=== PATIENT | male | born 1975 | race Caucasian/White ===

== ENCOUNTER 2021-04-09 12:51 | Outpatient (REF) | payer OTHER, SELFPAY ==
--- NOTE | ~2021-04-09 | XR_ITS ---
EXAMINATION: XR HIP, LEFT CLINICAL INFORMATION: Left knee pain. COMPARISON: None TECHNIQUE: Two views of the left hip. FINDINGS: Minimal left hip degenerative joint changes are seen. There is no acute fracture or dislocation. The soft tissues are unremarkable. XR/XR hip LT min 2V IMPRESSION: Minimal left hip degenerative joint changes. No acute abnormality.
== END 2021-04-09 12:52 | disposition home or self-care (01) ==
LOC: HO.XRAY 12:51
PROVIDERS: PCP Student in an Organized Health Care Education/Training Program; Visit Provider Internal Medicine Geriatric Medicine
DX: M25.552 Pain in left hip (principal)
CPT/HCPCS: 73502

== ENCOUNTER 2023-06-07 09:23 | Outpatient (REF) | payer OTHER, SELFPAY ==
[2023-06-07 11:29] LABS: MANUAL DIFF FLAG NO
[2023-06-07 11:49] LABS: Basophils Percent Auto 0.6 % (0-2); Eosinophils Absolute Auto 0.1 X10*3/uL (0.0-0.4); Eosinophils Percent Auto 1.2 % (0-4); Hematocrit 42.5 % (42.0-52.0); Hemoglobin 14.2 g/dl (14.0-18.0); Imm Gran Abs Auto 0.01 X10*3/uL (0.00-0.03); Imm Gran Pct Auto 0.2 % (0.0-0.4); Lymphocytes Absolute Auto 1.6 X10*3/uL (1.2-4.9); Lymphocytes Percent Auto 33.1 % (20-40); Mean Corpuscular HGB Conc 33.4 g/dl (31.0-36.0); Mean Corpuscular Hemoglobin 31.7 pg (27.0-33.0); Mean Corpuscular Volume 94.9 fL (80.0-98.0); Mean Platelet Volume 10.6 fL (9.4-12.4); Monocytes Absolute Auto 0.4 X10*3/uL (0.1-1.2); Neutrophils Absolute Auto 2.7 x10*3/uL (2.0-8.3); Neutrophils Percent Auto 55.9 % (45-73); Platelet Count 235 X10*3/uL (160-400); Red Blood Count 4.48 X10*6/uL (4.60-5.80); Red Cell Distribution Width 13.2 % (11.0-16.0); White Blood Count 4.9 X10*3/uL (4.8-10.8)
[2023-06-07 12:20] LABS: Alanine Aminotransferase 23 U/L (0-40); Albumin Level 4.3 g/dL (3.5-5.0); Alkaline Phosphatase 63 U/L (39-117); Anion Gap 12 (12-20); Aspartate Amino Transferase 21 U/L (5-37); Bilirubin Direct 0.4 mg/dL (0.0-0.5); Blood Urea Nitrogen 15 mg/dL (9-16); Calcium 10.2 mg/dL (8.4-10.2); Carbon Dioxide 25 mmol/L (22-29); Chloride 107 mmol/L (96-108); Cholesterol 112 mg/dL; Estimated Glomerular Filt Rate > 60; Glucose Random 82 mg/dL (60-115); HDL Cholesterol 40 mg/dL; LDL Cholesterol Calculated 62 mg/dl; Potassium 4.2 mmol/L (3.3-5.1); Sodium 140 mmol/L (135-145); Thyroid Stimulating Hormone 0.67 uIU/mL (0.32-4.0); Total Protein 7.4 g/dL (6.5-8.0); Triglycerides 54 mg/dL
[2023-06-12 15:43] LABS: Testosterone, Free 72.5 pg/mL (35.0-155.0); Testosterone, Total 424 ng/dL (250-1100)
== END 2023-06-07 09:24 | disposition home or self-care (01) ==
LOC: HO.HHCL 09:23
PROVIDERS: Visit Provider Student in an Organized Health Care Education/Training Program
DX: I10 Essential (primary) hypertension (principal); R53.83 Other fatigue
CPT/HCPCS: 36415; 80048; 80061; 80076; 84402; 84403; 84443; 85025

== ENCOUNTER 2024-02-27 14:50 | Outpatient (REF) | payer OTHER, SELFPAY ==
[2024-02-27 17:56] LABS: MANUAL DIFF FLAG NO
[2024-02-27 18:00] LABS: Basophils Absolute Auto 0.1 X10*3/uL (0.0-0.2); Basophils Percent Auto 0.6 % (0-2); Eosinophils Absolute Auto 0.1 X10*3/uL (0.0-0.4); Eosinophils Percent Auto 0.9 % (0-4); Hematocrit 42.5 % (42.0-52.0); Hemoglobin 14.6 g/dl (14.0-18.0); Imm Gran Abs Auto 0.01 X10*3/uL (0.00-0.03); Imm Gran Pct Auto 0.1 % (0.0-0.4); Lymphocytes Absolute Auto 2.5 X10*3/uL (1.2-4.9); Lymphocytes Percent Auto 31.7 % (20-40); Mean Corpuscular HGB Conc 34.4 g/dl (31.0-36.0); Mean Corpuscular Hemoglobin 32.2 pg (27.0-33.0); Mean Corpuscular Volume 93.6 fL (80.0-98.0); Mean Platelet Volume 9.4 fL (9.4-12.4); Monocytes Absolute Auto 0.6 X10*3/uL (0.1-1.2); Monocytes Percent Auto 8.3 % (2-11); Neutrophils Absolute Auto 4.5 x10*3/uL (2.0-8.3); Neutrophils Percent Auto 58.4 % (45-73); Platelet Count 283 X10*3/uL (160-400); Red Blood Count 4.54 X10*6/uL (4.60-5.80); Red Cell Distribution Width 12.2 % (11.0-16.0); White Blood Count 7.8 X10*3/uL (4.8-10.8)
[2024-02-27 18:11] LABS: Alanine Aminotransferase 12 U/L (0-40); Alkaline Phosphatase 76 U/L (39-117); Anion Gap 14 (12-20); Aspartate Amino Transferase 13 U/L (5-37); Bilirubin Total 0.5 mg/dL (0.0-1.0); Blood Urea Nitrogen 26 mg/dL (9-16); Calcium 9.2 mg/dL (8.4-10.2); Carbon Dioxide 24 mmol/L (22-29); Chloride 104 mmol/L (96-108); Cholesterol 161 mg/dL (<200); Estimated Glomerular Filt Rate > 60; Glucose Random 78 mg/dL (60-115); HDL Cholesterol 46 mg/dL (>40); LDL Cholesterol Calculated 92 mg/dL (<100); Potassium 3.7 mmol/L (3.3-5.1); Sodium 138 mmol/L (135-145); Total Protein 7.7 g/dL (6.5-8.0); Triglycerides 118 mg/dL (<150)
[2024-02-27 18:54] LABS: Reflex LDLD? No
[2024-02-29 10:38] LABS: Absolute CD3 Count 1929 cells/uL (840-3060); Absolute CD4 Count 1130 cells/uL (490-1740); Absolute CD8 Count 893 cells/uL (180-1170); Absolute Lymphocytes 2438 cells/uL (850-3900); CD4 CD8 Ratio 1.27 (0.86-5.00); Percent CD3 Cells 79 % (57-85); Percent CD4 Cells 46 % (30-61); Percent CD8 Cells 37 % (12-42); RPR Rapid Plasma Reagin NON-REACTIVE (NON-REACTIVE)
[2024-03-01 23:38] LABS: TS Negative Control Passed; TS Panel A 0; TS Panel B 1; TS Positive Control Passed; TSpotTB Negative (Negative)
== END 2024-02-27 14:51 | disposition home or self-care (01) ==
LOC: HO.CHCLDS 14:50
PROVIDERS: Visit Provider Internal Medicine
DX: Z11.1 Encounter for screening for respiratory tuberculosis (principal); Z11.3 Encounter for screening for infections with a predominantly sexual mode of transmission; Z21 Asymptomatic human immunodeficiency virus [HIV] infection status
CPT/HCPCS: 36415; 80053; 80061; 85025; 86359; 86360; 86481; 86592; 87536

== ENCOUNTER 2024-03-05 08:40 | Outpatient (AMB) | payer OTHER, SELFPAY ==
--- NOTE | 2024-03-05 08:42 | MHC.OFFVIS ---
Vital Signs 03/05/24 08:49 Height 6 ft Weight 199 lb BMI 27.0 BP 126/83 Blood Pressure Location Rt brachial Position Sitting Pulse 75 Intake Visit Reasons: Lipoma other specified sites Intake Note: Patient referred by Dr. Mcgovern for lipoma on Lt lower back. Present for 2yrs. Patient c/o: enlarging, tenderness. Denies oozing. Hydrographic Engineer Required: No Accompanied by: Self / Same As Patient Allergies No Known Allergies Allergy (Verified 03/05/24 08:46) HPI Comments Details: Patient presents for evaluation of bilateral lower back lipomas. He has had left hip/sciatic type symptoms and is wondering if these lipomas may be responsible for his symptoms. He had back film was by his medical doctor earlier in the week but has not had them reviewed yet. Chart was reviewed and patient evaluated [facility] Surgical History (Updated 03/05/24 @ 09:42 by Randy Barnes MD) History of lung biopsy Social History (Updated 03/05/24 @ 08:49 by JAYNA Ralph) Alcohol intake: current Alcohol intake frequency: a few times a month Alcohol type: beer Patient Tobacco Use Status: Never used Tobacco Physical Exam Vital Signs: Last Vital Signs Pulse 75 03/05/24 08:49 BP 126/83 03/05/24 08:49 BMI result Body Mass Index 27.0 Chest Other: Chest breath sounds bilaterally, HS 1 in 2 GI Other: Abdomen is soft, benign Back/Spine/Pelvis Other: Patient has bilateral lower back lipomas deeply situated in the upper buttock area symmetrically. Each measures approximately 4 x 3 cm. Assessment & Plan Assessment & Plan (1) Lipoma of back: Code(s): D17.1 - Benign lipomatous neoplasm of skin and subcutaneous tissue of trunk Category: Surgical Plan Discussed with the patient that it is highly unlikely that these lipomas are causing his hip/back symptoms. Is more likely that this is either related to his lumbar spine/radiculopathy type etiology. Nonetheless, he wishes to have these 2 lipomas excised. Because of the depth and size, I think he would be best served having these removed in an ambulatory surgical setting. Risks, benefits, alternatives of bilateral lower back lipoma excision were reviewed with the patient and included but not limited to bleeding, infection, recurrence, numbness, pain, scarring the patient was to proceed. All questions answered. Arrangements made for this. Coding Level of Care Code New Pt Level 5 (64281) Diagnoses Lipoma of back D17.1
[2024-03-05 08:49] VITALS: BP 126/83; PULSE 75; BMI 27.0
== END 2024-03-05 09:39 | disposition home or self-care (01) ==
PROVIDERS: PCP Student in an Organized Health Care Education/Training Program; Visit Provider Surgery
DX: D17.1 Benign lipomatous neoplasm of skin and subcutaneous tissue of trunk (principal)
CPT/HCPCS: 99204

== ENCOUNTER → 2024-03-05 08:40 | Outpatient (BNVA) | payer OTHER, SELFPAY | PROVIDERS: PCP Student in an Organized Health Care Education/Training Program; Visit Provider Surgery | DX: D17.1 Benign lipomatous neoplasm of skin and subcutaneous tissue of trunk (principal) | CPT/HCPCS: 99202 ==

== ENCOUNTER 2024-03-22 10:57 | Outpatient (REF) | payer OTHER, SELFPAY ==
[2024-03-23 15:14] LABS: HIV RNA PCR Qn Copies 81 copies/mL (NOT DETECTED); HIV RNA PCR Qn Log Copies 1.91 (NOT DETECTED)
== END 2024-03-22 10:58 | disposition home or self-care (01) ==
LOC: HO.CHCLDS 10:57
PROVIDERS: Visit Provider Internal Medicine
DX: B20 Human immunodeficiency virus [HIV] disease (principal)
CPT/HCPCS: 36415; 87536

== ENCOUNTER 2024-04-05 08:07 | Day surgery (SDC) | payer OTHER, SELFPAY ==
[2024-04-03 14:17] VITALS: BMI 27.0
--- NOTE | 2024-04-04 12:47 | MHC.SHP ---
Pre-Procedural Eval Section A - 24 Hr Update-Section A only Date of Service: 04/04/24 The patient is an INPATIENT: No Changes since office visit: No Cold of Flu in the past 2 weeks, No New Medical Problems, No Changes in Medication and No Patient answered all questions Section B - Complete if H&P > 30 days Chief Complaint: Benign lipomatous neoplasm of skin Allergies: Allergies Allergy/AdvReac Type Severity Reaction Status Date / Time No Known Allergies Allergy Verified 03/05/24 08:46 Plan I have reviewed the history and physical and performed a pertinent physical examination on my patient. No changes have occurred unless specified. Time Spent With Patient Time: Total time managing care of this patient today ____ minutes.
[2024-04-05] VITALS (9 sets, daily range): BP systolic 88–134; BP diastolic 46–90; PULSE 72–80; RESP 9–20; TEMP 36.1–36.9; O2SAT 96–100; BMI 27.4
[2024-04-05] MEDS: Lactated Ringers 1,000 ML 100 ML IVCONT (08:32)
--- NOTE | 2024-04-05 08:45 | P.CONAN_ITS ---
Documented by User: Amie Robertson NP 04/04/24 10:03 HPI - Anesthesia Eval Consult details Narrative: 48yo M for Bilateral Wide Local Excision Lipoma on back x 2 ? HIV - on biktarvy [facility] Active Problems Active Problems: All Active Problems Lipoma of back (Acute) Past Medical History Medical History (Updated 04/05/24 @ 08:22 by Pina Maldonado RN) Immunocompromised Iliotibial band syndrome of left side Sacroiliitis GERD (gastroesophageal reflux disease) Back pain Surgical History Surgical History (Updated 03/05/24 @ 09:42 by Randy Barnes MD) History of lung biopsy Social History Social History (Updated 03/05/24 @ 08:49 by JAYNA Ralph) Alcohol intake: current Alcohol intake frequency: holidays/special occasions only Alcohol type: beer Patient Tobacco Use Status: Never used Tobacco Are you DNR?: No Advance Directives: No Advance Directives Information Provided: Yes Nutrition Risks: No Nutritional Risk Meds Allergies Allergy/AdvReac Type Severity Reaction Status Date / Time No Known Allergies Allergy Verified 03/05/24 08:46 Home Medications ?Medication ?Instructions ?Recorded ?Confirmed ?Last Taken ?Type bictegravir 30 mg-emtricitabine tab PO 03/05/24 Unknown History 120 mg-tenofovir alafenam 15 mg tablet ([facility]) omeprazole 20 mg capsule,delayed 20 mg PO DAILY 03/05/24 04/03/24 Unknown History release Exam Height,Weight and Vital Signs: Height 6 ft Weight 90.265 kg Assessment and Plan Assessment Anesthesia Assessment: Chart Reviewed Documented by User: Tata Hagen DO 04/05/24 08:49 [facility] Past Medical History Medical History (Updated 04/05/24 @ 08:22 by Pina Maldonado RN) Immunocompromised Iliotibial band syndrome of left side Sacroiliitis GERD (gastroesophageal reflux disease) Back pain Family History Family history of problems with anesthesia: No Surgical History Surgical History (Updated 03/05/24 @ 09:42 by Randy Barnes MD) History of lung biopsy History of Problems with Anesthesia: No Social History Social History (Updated 03/05/24 @ 08:49 by JAYNA Ralph) Alcohol intake: current Alcohol intake frequency: holidays/special occasions only Alcohol type: beer Patient Tobacco Use Status: Never used Tobacco Are you DNR?: No Advance Directives: No Advance Directives Information Provided: Yes Nutrition Risks: No Nutritional Risk Meds Allergies Allergy/AdvReac Type Severity Reaction Status Date / Time No Known Allergies Allergy Verified 03/05/24 08:46 Home Medications ?Medication ?Instructions ?Recorded ?Confirmed ?Last Taken ?Type bictegravir 30 mg-emtricitabine tab PO 03/05/24 Unknown History 120 mg-tenofovir alafenam 15 mg tablet (Biktarvy) omeprazole 20 mg capsule,delayed 20 mg PO DAILY 03/05/24 04/03/24 Unknown History release Exam Exam Date and Time: April 05, 2024 0845 Height,Weight and Vital Signs: Height 6 ft Weight 90.265 kg Height 6 ft Weight 91.5 kg Vital Signs Temperature 98.4 F 04/05/24 08:22 Pulse Rate 80 04/05/24 08:22 Respiratory Rate 20 04/05/24 08:22 Blood Pressure 134/81 04/05/24 08:22 Pulse Oximetry 97 04/05/24 08:22 Oxygen Delivery Method Room Air 04/05/24 08:22 Temperature 98.4 F 04/05/24 08:22 Pulse Rate 80 04/05/24 08:22 Respiratory Rate 20 04/05/24 08:22 Blood Pressure 134/81 04/05/24 08:22 Pulse Oximetry 97 04/05/24 08:22 Oxygen Delivery Method Room Air 04/05/24 08:22 Airway Mallampati Class: I TM Dist: >3cm Neck ROM: Full Loose/Missing/Broken Teeth: Yes (broken molar left bottom jaw) Heart: S1S2 Lungs: CTAB Assessment and Plan Assessment Anesthesia Assessment: Anesthesia Plan Discussed and Chart Reviewed Final Anesthetic Review Family History of Problems with Anesthesia: No History of Problems with Anesthesia: No NPO: Yes ASA Class: II Final Preanesthetic Review: No Changes in Pt Med Stat, Meds/Allgs Chart Reviewed, Consent Obtained/Reviewed and Anes Risks/Benef Reviewed Patient Risk: Low Procedure Risk: Low Anesthetic Plan Anesthetic Plan: MAC: and Agree w/ Assess. and Plan Disposition: Standard PACU
--- NOTE | 2024-04-05 10:45 | W.PM.OPN ---
Operative Note Operative Note Date of Service: 04/05/24 Narrative: Preoperative diagnosis: [] Bilateral symptomatic deeply situated lower back lipomas Postop diagnosis: [] The same Procedure [] excision bilateral lower back lipomas Surgeon: [] Cameron Purchasing Supervisor: [] Type of Anesthesia: [] MAC Indication for surgery: [] Each specimen measured approximately 8 x 6 cm consistent with a large lipomas Findings: [] Patient brought to the operating room, placed on operative table supine position, after an adequate level of MAC anesthesia was induced, patient was placed in the prone position. Lower back areas prepped and draped in usual sterile fashion. Each lipoma of the lower back area was respectively approached using a transverse incision over the lipomas and carried down through skin, subcutaneous tissue, where uneventful excision of respective lipomas was performed using Bovie. Each specimen measured approximately 8 x 6 cm and separately sent to pathology . Each wound was irrigated, secured hemostasis, and closed using interrupted inverted dermal 3-0 Vicryl sutures followed by Steri-Strips and sterile dressings. Wounds were infiltrated at beginning at the end of the case with 0.5% Marcaine/1% lidocaine. Sponge, needle, and instrument counts reported correct. Patient tolerated the procedure well and emerged from anesthesia stable condition. EBL minimal
== END 2024-04-05 12:45 | disposition home or self-care (01) ==
PROVIDERS: Visit Provider Surgery
PROC: (CPT 21931; principal; 2024-04-05 09:30)
DX: D17.1 Benign lipomatous neoplasm of skin and subcutaneous tissue of trunk (principal)
CPT/HCPCS: 21931 ×2; 88304; J0690; J2250; J2704; J2795; J3010

== ENCOUNTER → 2024-04-05 08:07 | Outpatient (BNV) | payer OTHER, SELFPAY | PROVIDERS: Visit Provider Surgery | DX: D17.1 Benign lipomatous neoplasm of skin and subcutaneous tissue of trunk (principal) | CPT/HCPCS: 21931 ==

== ENCOUNTER 2024-04-16 14:56 | Outpatient (AMB) | payer OTHER, SELFPAY ==
--- NOTE | 2024-04-16 15:03 | MHC.OFFVIS ---
Intake Visit Reasons: S/P WLE bilateral back lipoma x2 Intake Note: This patient presents for a post-op assessment status post wide local excision bilateral back lipoma x2. Pt c/o; reports soreness. Feed Handler Required: No Accompanied by: Self / Same As Patient Allergies No Known Allergies Allergy (Verified 04/16/24 15:04) Medication List - Last Reconciled 04/16/24 by Randy Barnes MD [id number] ala 30-120-15 mg (Biktarvy) tabs PO hydrocodone-acetaminophen 5-325 mg 1 tab PO Q4-6H PRN omeprazole 20 mg PO DAILY HPI Comments Details: Patient presents for follow-up. He is returned to work. He has not really being sedentary as requested but otherwise doing okay. Pathology was benign for both. [facility] Medical History Immunocompromised Iliotibial band syndrome of left side Sacroiliitis GERD (gastroesophageal reflux disease) Back pain Surgical History History of lung biopsy Social History Alcohol intake: current Alcohol intake frequency: holidays/special occasions only Alcohol type: beer Comment: COUNTS CORRECT Patient Tobacco Use Status: Never used Tobacco Physical Exam Back/Spine/Pelvis Other: Bilateral incisions clean dry and intact healing very well. Patient has expected seromas which are moderately symptomatic. My recommendation is to aspirate these and patient agrees. Office Procedures Aspiration of Seroma Details: Patient underwent bilateral lower back lipoma excision in the recent past. He presents here with symptomatic seromas. After appropriate positioning, under sterile technique, patient underwent aspiration of each lower back seroma. Right produced 70 cc and left 60 cc . Patient tolerated procedure well. Dressings applied. Aspiration of Seroma: 55204 Seroma Aspiration All charges added?: Procedure code (CPT) selection complete Assessment & Plan Assessment & Plan (1) Seroma due to trauma: Code(s): T79.2XXA - Traumatic secondary and recurrent hemorrhage and seroma, initial encounter Category: Surgical Plan: Patient has been given local instructions including avoiding strenuous activities, and we will otherwise follow-up p.r.n.. I explained to him the more active he is the more likely the seromas will recur. If so he should contact the office for repeat aspiration. All questions answered. Orders: Orders AMB Aspiration of Seroma Today T79.2XXA - Traumatic secondary and recurrent hemorrhage and seroma, initial encounter Coding Level of Care Code Est Pt Level 4 (46363) Global (41589) Diagnoses Seroma due to trauma T79.2XXA CPT Codes Aspiration of Seroma ([id number])
== END 2024-04-16 15:23 | disposition home or self-care (01) ==
PROVIDERS: PCP Student in an Organized Health Care Education/Training Program; Visit Provider Surgery
DX: T79.2XXA Traumatic secondary and recurrent hemorrhage and seroma, initial encounter (principal)
CPT/HCPCS: 99024

== ENCOUNTER → 2024-04-16 14:56 | Outpatient (BNVA) | payer OTHER, SELFPAY | PROVIDERS: PCP Student in an Organized Health Care Education/Training Program; Visit Provider Surgery | DX: L76.33 Postprocedural seroma of skin and subcutaneous tissue following a dermatologic procedure (principal) | CPT/HCPCS: 10160; 99212 ==

== ENCOUNTER 2024-04-22 10:54 | Outpatient (AMB) | payer OTHER, SELFPAY ==
--- NOTE | 2024-04-22 10:57 | A.OFFVIS_ITS ---
Intake Visit Reasons: Drain bilateral back lipoma x2 Intake Note: Patient being seen as an urgent appointment for seromas on back. Last seen 04-16-24. Patient c/o: pain and fluid build up. Labor Relations Representative Required: No Accompanied by: Self / Same As Patient Allergies No Known Allergies Allergy (Verified 04/22/24 10:58) HPI Comments Details: Patient was status post bilateral lower back seroma aspirations. The left side has not recurred. The right side has recurred and is symptomatic. Patient presents for repeat aspiration of seroma. [facility] Medical History Immunocompromised Iliotibial band syndrome of left side Sacroiliitis GERD (gastroesophageal reflux disease) Back pain Surgical History History of lung biopsy Social History Alcohol intake: current Alcohol intake frequency: holidays/special occasions only Alcohol type: beer Comment: COUNTS CORRECT Patient Tobacco Use Status: Never used Tobacco Office Procedures Aspiration of Seroma Details: After appropriate positioning, under sterile technique, patient underwent aspira tion of the right lower back seroma. A proximally 60 cc were retrieved. Dressing applied. Patient tolerated procedure well Aspiration of Seroma: 30836 Seroma Aspiration All charges added?: Procedure code (CPT) selection complete Assessment & Plan Assessment & Plan (1) Seroma due to trauma: Code(s): T79.2XXA - Traumatic secondary and recurrent hemorrhage and seroma, initial encounter Category: Surgical Plan: Patient has been given local instructions including avoiding strenuous activity as best as possible. Should the seroma recurred, patient instructed to call the office. Patient will otherwise follow-up p.r.n.. All questions answered. Orders: Orders AMB Aspiration of Seroma Today T79.2XXA - Traumatic secondary and recurrent hemorrhage and seroma, initial encounter Coding Level of Care Code Est Pt Level 4 (89875) Global (87556) Diagnoses Seroma due to trauma T79.2XXA CPT Codes Aspiration of Seroma ([id number])
== END 2024-04-22 11:03 | disposition home or self-care (01) ==
PROVIDERS: PCP Student in an Organized Health Care Education/Training Program; Visit Provider Surgery
DX: T79.2XXA Traumatic secondary and recurrent hemorrhage and seroma, initial encounter (principal)
CPT/HCPCS: 99024

== ENCOUNTER → 2024-04-22 10:54 | Outpatient (BNVA) | payer OTHER, SELFPAY | PROVIDERS: PCP Student in an Organized Health Care Education/Training Program; Visit Provider Surgery | DX: T79.2XXA Traumatic secondary and recurrent hemorrhage and seroma, initial encounter (principal) | CPT/HCPCS: 10160; 99212 ==

== ENCOUNTER 2024-08-16 15:37 | Outpatient (REF) | payer OTHER, SELFPAY ==
[2024-08-16 16:27] LABS: MANUAL DIFF FLAG NO
[2024-08-16 16:34] LABS: Basophils Percent Auto 0.5 % (0-2); Eosinophils Absolute Auto 0.1 X10*3/uL (0.0-0.4); Eosinophils Percent Auto 1.2 % (0-4); Hematocrit 42.4 % (42.0-52.0); Hemoglobin 14.7 g/dl (14.0-18.0); Imm Gran Abs Auto 0.02 X10*3/uL (0.00-0.03); Imm Gran Pct Auto 0.3 % (0.0-0.4); Lymphocytes Absolute Auto 2.5 X10*3/uL (1.2-4.9); Lymphocytes Percent Auto 33.8 % (20-40); Mean Corpuscular HGB Conc 34.7 g/dl (31.0-36.0); Mean Corpuscular Hemoglobin 32.5 pg (27.0-33.0); Mean Corpuscular Volume 93.8 fL (80.0-98.0); Mean Platelet Volume 9.2 fL (9.4-12.4); Monocytes Absolute Auto 0.6 X10*3/uL (0.1-1.2); Monocytes Percent Auto 7.5 % (2-11); Neutrophils Absolute Auto 4.2 x10*3/uL (2.0-8.3); Neutrophils Percent Auto 56.7 % (45-73); Platelet Count 245 X10*3/uL (160-400); Red Blood Count 4.52 X10*6/uL (4.60-5.80); Red Cell Distribution Width 12.3 % (11.0-16.0); White Blood Count 7.4 X10*3/uL (4.8-10.8)
[2024-08-16 16:45] LABS: Alanine Aminotransferase 13 U/L (0-40); Albumin Level 4.2 g/dL (3.5-5.0); Alkaline Phosphatase 72 U/L (39-117); Anion Gap 11 (12-20); Aspartate Amino Transferase 17 U/L (5-37); Bilirubin Total 0.8 mg/dL (0.0-1.0); Blood Urea Nitrogen 22 mg/dL (9-16); Calcium 9.4 mg/dL (8.4-10.2); Carbon Dioxide 25 mmol/L (22-29); Chloride 107 mmol/L (96-108); Estimated Glomerular Filt Rate > 60; Glucose Random 81 mg/dL (60-115); Potassium 3.7 mmol/L (3.3-5.1); Sodium 139 mmol/L (135-145); Total Protein 7.2 g/dL (6.5-8.0)
[2024-08-17 14:53] LABS: HIV RNA PCR Qn Copies 120 copies/mL (NOT DETECTED); HIV RNA PCR Qn Log Copies 2.08 (NOT DETECTED)
[2024-08-22 01:24] LABS: Absolute CD3 Count 2175 cells/uL (840-3060); Absolute CD4 Count 1269 cells/uL (490-1740); Absolute CD8 Count 1048 cells/uL (180-1170); Absolute Lymphocytes 2743 cells/uL (850-3900); CD4 CD8 Ratio 1.21 (0.86-5.00); Percent CD3 Cells 79 % (57-85); Percent CD4 Cells 46 % (30-61); Percent CD8 Cells 38 % (12-42)
== END 2024-08-16 15:38 | disposition home or self-care (01) ==
LOC: HO.HHCL 15:37
PROVIDERS: Visit Provider Internal Medicine
DX: B20 Human immunodeficiency virus [HIV] disease (principal)
CPT/HCPCS: 36415; 80053; 85025; 86359; 86360; 87536

== ENCOUNTER 2024-11-07 11:33 | Outpatient (REF) | payer OTHER, SELFPAY ==
[2024-11-07 13:22] LABS: MANUAL DIFF FLAG NO
[2024-11-07 13:25] LABS: Basophils Percent Auto 0.5 % (0-2); Eosinophils Absolute Auto 0.1 X10*3/uL (0.0-0.4); Eosinophils Percent Auto 1.2 % (0-4); Hematocrit 45.7 % (42.0-52.0); Hemoglobin 16.1 g/dl (14.0-18.0); Imm Gran Abs Auto 0.02 X10*3/uL (0.00-0.03); Imm Gran Pct Auto 0.3 % (0.0-0.4); Lymphocytes Absolute Auto 2.2 X10*3/uL (1.2-4.9); Lymphocytes Percent Auto 29.4 % (20-40); Mean Corpuscular HGB Conc 35.2 g/dl (31.0-36.0); Mean Corpuscular Hemoglobin 33.6 pg (27.0-33.0); Mean Corpuscular Volume 95.4 fL (80.0-98.0); Mean Platelet Volume 9.4 fL (9.4-12.4); Monocytes Absolute Auto 0.6 X10*3/uL (0.1-1.2); Monocytes Percent Auto 7.6 % (2-11); Neutrophils Absolute Auto 4.5 x10*3/uL (2.0-8.3); Platelet Count 300 X10*3/uL (160-400); Red Blood Count 4.79 X10*6/uL (4.60-5.80); Red Cell Distribution Width 12.9 % (11.0-16.0); White Blood Count 7.4 X10*3/uL (4.8-10.8)
[2024-11-07 13:50] LABS: Alanine Aminotransferase 10 U/L (0-40); Alkaline Phosphatase 66 U/L (39-117); Anion Gap 10 (12-20); Aspartate Amino Transferase 18 U/L (5-37); Bilirubin Total 0.7 mg/dL (0.0-1.0); Blood Urea Nitrogen 18 mg/dL (9-16); Calcium 8.9 mg/dL (8.4-10.2); Carbon Dioxide 27 mmol/L (22-29); Chloride 107 mmol/L (96-108); Estimated Glomerular Filt Rate > 60; Glucose Random 86 mg/dL (60-115); Sodium 140 mmol/L (135-145); Total Protein 7.4 g/dL (6.5-8.0)
[2024-11-09 22:39] LABS: Absolute CD3 Count 1622 cells/uL (840-3060); Absolute CD4 Count 863 cells/uL (490-1740); Absolute CD8 Count 801 cells/uL (180-1170); Absolute Lymphocytes 2168 cells/uL (850-3900); CD4 CD8 Ratio 1.08 (0.86-5.00); Percent CD3 Cells 75 % (57-85); Percent CD4 Cells 40 % (30-61); Percent CD8 Cells 37 % (12-42)
[2024-11-10 13:18] LABS: HIV RNA PCR Qn Copies 187 copies/mL (NOT DETECTED); HIV RNA PCR Qn Log Copies 2.27 (NOT DETECTED)
== END 2024-11-07 11:34 | disposition home or self-care (01) ==
LOC: HO.HHCL 11:33
PROVIDERS: Visit Provider Internal Medicine
DX: Z21 Asymptomatic human immunodeficiency virus [HIV] infection status (principal)
CPT/HCPCS: 36415; 80053; 82550; 85025; 86359; 86360; 87536

== ENCOUNTER 2025-01-15 16:02 | Outpatient (REF) | payer OTHER, SELFPAY ==
[2025-01-15 18:23] LABS: MANUAL DIFF FLAG NO
[2025-01-15 18:33] LABS: Basophils Absolute Auto 0.1 X10*3/uL (0.0-0.2); Basophils Percent Auto 0.8 % (0-2); Eosinophils Absolute Auto 0.1 X10*3/uL (0.0-0.4); Eosinophils Percent Auto 1.7 % (0-4); Hematocrit 42.4 % (42.0-52.0); Hemoglobin 14.8 g/dl (14.0-18.0); Imm Gran Abs Auto 0.03 X10*3/uL (0.00-0.03); Imm Gran Pct Auto 0.4 % (0.0-0.4); Lymphocytes Absolute Auto 2.9 X10*3/uL (1.2-4.9); Lymphocytes Percent Auto 38.6 % (20-40); Mean Corpuscular HGB Conc 34.9 g/dl (31.0-36.0); Mean Corpuscular Hemoglobin 32.2 pg (27.0-33.0); Mean Corpuscular Volume 92.4 fL (80.0-98.0); Mean Platelet Volume 9.1 fL (9.4-12.4); Monocytes Absolute Auto 0.6 X10*3/uL (0.1-1.2); Monocytes Percent Auto 7.9 % (2-11); Neutrophils Absolute Auto 3.8 x10*3/uL (2.0-8.3); Neutrophils Percent Auto 50.6 % (45-73); Platelet Count 316 X10*3/uL (160-400); Red Blood Count 4.59 X10*6/uL (4.60-5.80); Red Cell Distribution Width 12.7 % (11.0-16.0); White Blood Count 7.4 X10*3/uL (4.8-10.8)
[2025-01-15 18:45] LABS: Alanine Aminotransferase 12 U/L (0-40); Albumin Level 3.8 g/dL (3.5-5.0); Alkaline Phosphatase 82 U/L (39-117); Anion Gap 9 (12-20); Aspartate Amino Transferase 19 U/L (5-37); Bilirubin Total 0.6 mg/dL (0.0-1.0); Blood Urea Nitrogen 18 mg/dL (9-16); Carbon Dioxide 25 mmol/L (22-29); Chloride 110 mmol/L (96-108); Estimated Glomerular Filt Rate > 60; Glucose Random 84 mg/dL (60-115); Potassium 3.9 mmol/L (3.3-5.1); Sodium 140 mmol/L (135-145); Total Protein 7.5 g/dL (6.5-8.0)
[2025-01-16 20:54] LABS: HIV RNA PCR Qn Copies 191 copies/mL (NOT DETECTED); HIV RNA PCR Qn Log Copies 2.28 (NOT DETECTED)
== END 2025-01-15 16:03 | disposition home or self-care (01) ==
LOC: HO.HHCL 16:02
PROVIDERS: Visit Provider Internal Medicine
DX: Z21 Asymptomatic human immunodeficiency virus [HIV] infection status (principal)
CPT/HCPCS: 36415; 80053; 82550; 85025; 87536

== ENCOUNTER 2025-03-19 14:48 | Outpatient (REF) | payer OTHER, SELFPAY ==
--- OUTSIDE RECORDS SUMMARY | 2025-03-19 14:55 | XMS_ITS | Clinical Summary ---
Author Organization [facility] Address [address] [place] [address] Care Team Providers Care Sludge Filtration Attendant Name Role Phone Unavailable Primary Care Provider Unavailabl e Social History Tobacco Use Types Packs/Day Years Used Date Smoking Tobacco: Never Assessed Sex and Gender Information Value Date Recorded Sex Assigned at Not on file Legal Sex Male 6:11 PM EST Gender Identity Not on file Sexual Orientation Not on file Plan of Treatment Health Maintenance Due Date Last Done Comments DTaP,Tdap,and Td Vaccines (1 - Tdap) 1995 Hepatitis B Vaccines (1 of 3 - 19+ 3-dose series) 1995 COVID-19 Vaccine (2023-2 5 season) 2024 Influenza Vaccine (Season Ended) 2025 HIB Vaccines Aged Out No longer eligi ble based on patient's age to complete this topic HPV Vaccines Aged Out No longer eligi ble based on patient's age to complete this topic Hepatitis A Vaccines Aged Out No long er eligible based on patient's age to complete this topic IPV Vaccines Aged Out No longer eligi ble based on patient's age to complete this topic MMR Vaccines Aged Out No longer eligi ble based on patient's age to complete this topic Meningococcal ACWY Vaccine Aged Out N o longer eligible based on patient's age to complete this topic Meningococcal B Vaccine Aged Out No l onger eligible based on patient's age to complete this topic Pneumococcal Vaccine: Pediat rics (0 to 5 Years) and At-Risk Patients (6 to 64 Years) Aged Out No longer eligible b ased on patient's age to complete this topic RSV Immunization Patients Un eveline 20 months Aged Out No longer eligible b ased on patient's age to complete this topic Varicella Vaccines Aged Out No longer eligible based on patient's age to complete this topic
[2025-03-19 16:25] LABS: MANUAL DIFF FLAG NO
[2025-03-19 16:37] LABS: Basophils Percent Auto 0.7 % (0-2); Eosinophils Absolute Auto 0.1 X10*3/uL (0.0-0.4); Eosinophils Percent Auto 1.7 % (0-4); Hematocrit 45.2 % (42.0-52.0); Hemoglobin 15.4 g/dl (14.0-18.0); Imm Gran Abs Auto 0.02 X10*3/uL (0.00-0.03); Imm Gran Pct Auto 0.3 % (0.0-0.4); Lymphocytes Absolute Auto 2.1 X10*3/uL (1.2-4.9); Lymphocytes Percent Auto 35.4 % (20-40); Mean Corpuscular HGB Conc 34.1 g/dl (31.0-36.0); Mean Corpuscular Hemoglobin 32.1 pg (27.0-33.0); Mean Corpuscular Volume 94.2 fL (80.0-98.0); Mean Platelet Volume 9.4 fL (9.4-12.4); Monocytes Absolute Auto 0.4 X10*3/uL (0.1-1.2); Monocytes Percent Auto 5.8 % (2-11); Neutrophils Absolute Auto 3.4 x10*3/uL (2.0-8.3); Neutrophils Percent Auto 56.1 % (45-73); Platelet Count 273 X10*3/uL (160-400); Red Cell Distribution Width 13.3 % (11.0-16.0)
[2025-03-19 16:57] LABS: Alanine Aminotransferase 10 U/L (0-40); Albumin Level 3.9 g/dL (3.5-5.0); Alkaline Phosphatase 89 U/L (39-117); Anion Gap 12 (12-20); Aspartate Amino Transferase 18 U/L (5-37); Bilirubin Total 0.9 mg/dL (0.0-1.0); Blood Urea Nitrogen 17 mg/dL (9-16); Calcium 9.3 mg/dL (8.4-10.2); Carbon Dioxide 26 mmol/L (22-29); Chloride 109 mmol/L (96-108); Cholesterol 142 mg/dL (<200); Estimated Glomerular Filt Rate > 60; Glucose Random 136 mg/dL (60-115); HDL Cholesterol 57 mg/dL (>40); LDL Cholesterol Calculated 69 mg/dL (<100); Potassium 3.6 mmol/L (3.3-5.1); Sodium 143 mmol/L (135-145); Total Protein 7.1 g/dL (6.5-8.0); Triglycerides 81 mg/dL (<150)
[2025-03-19 20:04] LABS: Reflex LDLD? No
[2025-03-21 11:08] LABS: HIV RNA PCR Qn Copies 215 copies/mL (NOT DETECTED); HIV RNA PCR Qn Log Copies 2.33 (NOT DETECTED)
[2025-03-21 11:23] LABS: RPR Rapid Plasma Reagin NON-REACTIVE (NON-REACTIVE)
== END 2025-03-19 14:49 | disposition home or self-care (01) ==
LOC: HO.HHCL 14:48
PROVIDERS: Visit Provider Internal Medicine
DX: Z21 Asymptomatic human immunodeficiency virus [HIV] infection status (principal)
CPT/HCPCS: 36415; 80053; 80061; 85025; 86359; 86360; 86481; 86592; 87536

== ENCOUNTER 2025-07-16 15:34 | Outpatient (REF) | payer OTHER, SELFPAY ==
[2025-07-16 16:15] LABS: MANUAL DIFF FLAG NO
[2025-07-16 16:25] LABS: Hematocrit 40.3 % (42.0-52.0); Hemoglobin 13.7 g/dl (14.0-18.0); Imm Gran Abs Auto 0.01 X10*3/uL (0.00-0.03); Imm Gran Pct Auto 0.2 % (0.0-0.4); Lymphocytes Absolute Auto 2.3 X10*3/uL (1.2-4.9); Mean Corpuscular HGB Conc 34.0 g/dl (31.0-36.0); Mean Corpuscular Hemoglobin 32.2 pg (27.0-33.0); Mean Corpuscular Volume 94.6 fL (80.0-98.0); NRBC Abs Auto 0.000 X10*3/uL (0.0-0.012); NRBC Pct Auto 0.0 /100WBC (0.0-0.2); Platelet Count 240 X10*3/uL (160-400); Red Blood Count 4.26 X10*6/uL (4.60-5.80); White Blood Count 6.0 X10*3/uL (4.8-10.8)
[2025-07-16 17:11] LABS: Alanine Aminotransferase 10 U/L (0-40); Albumin Level 4.1 g/dL (3.5-5.0); Alkaline Phosphatase 69 U/L (39-117); Anion Gap 8 (12-20); Aspartate Amino Transferase 17 U/L (5-37); Blood Urea Nitrogen 23 mg/dL (9-16); Calcium 8.9 mg/dL (8.4-10.2); Carbon Dioxide 29 mmol/L (22-29); Chloride 108 mmol/L (96-108); Estimated Glomerular Filt Rate > 60; Potassium 3.7 mmol/L (3.3-5.1); Sodium 141 mmol/L (135-145); Total Protein 6.8 g/dL (6.5-8.0)
[2025-07-17 05:46] LABS: ~HepC Num1 0.10 S/CO (0.00-0.79); ~Hepatitis C Antibody Nonreactive (Nonreactive)
[2025-07-17 06:44] LABS: Rubeola IgG (Measles) >300.00 AU/mL
[2025-07-17 15:03] LABS: HIV RNA PCR Qn Copies NOT DETECTED copies/mL (NOT DETECTED); HIV RNA PCR Qn Log Copies NOT DETECTED (NOT DETECTED)
== END 2025-07-16 15:35 | disposition home or self-care (01) ==
LOC: HO.HHCL 15:34
PROVIDERS: PCP Student in an Organized Health Care Education/Training Program; Visit Provider Internal Medicine
DX: Z21 Asymptomatic human immunodeficiency virus [HIV] infection status (principal)
CPT/HCPCS: 36415; 80053; 82550; 85025; 86359; 86360; 86735; 86762; 86765; 86803; 87536